=== PATIENT | male | born 1995 | race Caucasian/White ===

== ENCOUNTER 2023-04-17 09:56 | Outpatient (RCR) | payer MEDICARE, SELFPAY | END 2023-04-17 23:59 | disposition home or self-care (01) | LOC: RPT 09:56 | PROVIDERS: ATTENDING PHYSICIAN Physician Assistant Surgical; FAMILY PHYSICIAN Nurse Practitioner Family | DX: S72.351D Displaced comminuted fracture of shaft of right femur, subsequent encounter for closed fracture with routine healing (principal); S82.041D Displaced comminuted fracture of right patella, subsequent encounter for closed fracture with routine healing; S72.362 Displaced segmental fracture of shaft of left femur; S82.252D Displaced comminuted fracture of shaft of left tibia, subsequent encounter for closed fracture with routine healing; S82.841D Displaced bimalleolar fracture of right lower leg, subsequent encounter for closed fracture with routine healing; I63.9 Cerebral infarction, unspecified; Z73.6 Limitation of activities due to disability | CPT/HCPCS: 96125; 97110; 97163; 97167 ==